=== PATIENT | female | born 1930 | race Caucasian/White ===

== ENCOUNTER → 2017-02-27 | Outpatient (CLI) | payer OTHER, MEDICARE ==
[~2017-02-27] MED LIST: ACETAMINOPHEN-1 EAC1 PO; ACTONEL; ACTONEL 35 MG35 M1 PO; ACTONEL30 MG; ACTONEL30 MG PO; ADULT LOW DOSE81 MG PO; ANUSOL-HC30 GM RC; APAP500; AUGMENTIN 875875 MG PO; B12 IM; CALTRATE-600 W1 EACH PO; CARVEDILOL12.5 MG PO; CIDATRINE500 MG PO; CLONAZEPAM; CLONAZEPAM 1 MG1 M1 PO; CLONAZEPAM PO; CLONIDINE; COLACE100 MG PO; COREG; DULCOLAX; FERRO-TIME325 MG PO; FERROUS OR; FUROSEMIDE 40 M40 M1 PO; GILPIZIDE; GLIPIZIDE 5 MG T5 MG PO; GLIPIZIDE ER2.5 MG PO; GLIPIZIDE5 MG PO; GLUCOSAMINE &1 EACH PO; HCTZ; IRON OR; IRON325; IRON325 PO; K-DUR 20 MEQ T20 MEQ PO; KLOR-CON 1010 MEQ PO; LASIX 20 MG TAB20 MG PO; LASIX 40 MG TAB40 M2 PO; LAXATIVE5 M1 PO; LIPITOR10 MG PO; LISINOPRIL; LISINOPRIL10 MG PO; LISINOPRIL20 MG PO; LOPERAMIDE 2 MG2 M1 PO; LORTAB 7.5/5001 TA3 PO; MAG DELAY64 MG PO; MAG-OX 400 TAB400 M1 PO; MUCINEX TA600 MG/TA1 PO; MUCINEX600 MG PO; NABUMETONE; NORCO 10-325 T1 EACH PO; NORCO 5-325 TA1 EACH PO; OMEPRAZOLE20 MG PO; ONDANSETRON HCL4 M2 PO; OS-CAL 500+D C1 EACH PO; PRAVACHOL; PRAVACHOL40 MG PO; PRAVASTATIN SOD20 MG PO; PRILOSEC 10MG C10 M1 PO; PRILOSEC 20 MG20 MG PO; PRILOSEC40 MG PO; PROAIR HFA8.5 GM INH; PROTONIX40 M1 PO; SERTRALINE HCL50 MG PO; SLO-NIACIN500 MG PO; TRAMADOL 50 MG50 MG PO; TRAZODONE HCL50 MG PO; TYLENOL325 MG PO; ULTRACET TABLE1 EACH PO; ULTRAM 50MG TAB50 MG PO; VENTOLIN HFA 1818 GM INH; VITAMIN B-12500 MCG PO; XOPENEX 0.63 MG/3 M1 INH; XOPENEX HF1 UDINHALE IH; ZOLOFT; ZOLOFT50 MG PO
[2017-02-27 13:02] LABS: CALCIUM 7.4 mg/dL (8.5-10.1); CREATININE 1.5 mg/dL (0.6-1.0); MAGNESIUM 1.2 mg/dL (1.8-2.4); POTASSIUM 4.2 mmol/L (3.5-5.1)
== END ==
LOC: ULTRA 09:23 → RAD 09:23
PROVIDERS: Internal Medicine Pulmonary Disease
DX: R05 Cough (principal); M79.605 Pain in left leg; M79.604 Pain in right leg; R60.0 Localized edema

== ENCOUNTER 2017-03-02 06:24 | Inpatient (IN) | payer OTHER, MEDICARE ==
[~2017-03-02] VITALS: Ht 152.4 cm; Wt 47.6 kg
--- NOTE | ~2017-03-02 | HC ---
[facility] [place] [address] CONSULTATION Name: LIVE MAN Room #: 464-P ADM IN M.R.#: [id number] Admission: 03/02/17 Attend Phys: Matthew Thorne MD Discharge: Date of : 31 Report #: [id number] THIS REPORT FOR: //name// CC: Marc Thorne MD DATE OF SERVICE: 03/02/2017 REFERRING PROVIDER: Matthew Thorne MD REASON FOR CONSULTATION: Hypoxemic respiratory failure. CHIEF COMPLAINT: Shortness of breath. HISTORY OF PRESENT ILLNESS: Our group was asked to see the patient in consultation while hospitalized at [facility], a pleasant elderly 86-year-old woman with a past pulmonary history significant for pulmonary edema associated with congestive heart failure, presented to the emergency department with increasing shortness of breath, was just seen in our office on the 27 of February because of some increasing lower extremity edema. Lower extremity venous Doppler was negative for any pulmonary embolism. There is some increase in diuretics for Lasix to 40 mg twice daily for 2 additional days as well as sodium avoidance. The patient continued to have increasing left greater than right lower extremity edema and increasing shortness of breath, was brought to the emergency room visit. She has been on diuretics since this morning in the emergency department and has noted some improvement; however, is on 4 liters nasal cannula at this time to maintain oxygen saturation. Denies any cough, congestion, wheezing at this time. Occasional nocturnal dyspnea noted. ALLERGIES: No known drug allergies. PAST MEDICAL HISTORY: 1. History of systolic congestive heart failure with an ejection fraction 30%-35% on echo, May of 2014. 2. History of gastroesophageal reflux disease. 3. Hypertension. 4. Diabetes mellitus type 2. 5. Carotid stenosis. OUTPATIENT MEDICATIONS: Include aspirin 81 mg daily, lisinopril 10 mg daily, glipizide 2.5 mg daily, carvedilol 12.5 mg twice daily, ondansetron p.r.n., Colace 100 mg daily, atorvastatin 10 mg daily, loperamide p.r.n., folic acid 1 mg daily, Lasix had been 40 mg twice daily, trazodone p.r.n., ibuprofen p.r.n., Mucinex p.r.n., ProAir p.r.n., Protonix [address] [address] CONSULTATION Name: LIVE MAN Room #: 464-P [facility]#: [id number] Admission: 03/02/17 Attend Phys: Matthew Thorne MD Discharge: Date of : 31 Report #: [id number] SOCIAL HISTORY: The patient is a never smoker, no alcohol consumption, currently resides in the assisted living and . FAMILY HISTORY: Noncontributory due to her advanced age. REVIEW OF SYSTEMS: Difficult to obtain due to hard of hearing as best I can tell other than HPI. CONSTITUTIONAL: No fevers, chills or sweats, change in weight or appetite. ENT: No upper respiratory congestion, rhinorrhea or dysphagia. CARDIOVASCULAR: Known history of ischemic cardiomyopathy. No chest pains or palpitations. GASTROINTESTINAL: No nausea, vomiting or abdominal pain. GENITOURINARY: No dysuria, no frequency. INTEGUMENT: Denies any rash. MUSCULOSKELETAL: No joint pains or swelling. Has noted some lower extremity edema as described. PHYSICAL EXAMINATION: VITAL SIGNS: Afebrile, pulse 90s, respiratory rate 20, blood pressure 136/73, oxygen saturation 97% on 4 liters. GENERAL: This is a pleasant elderly woman, hard of hearing, but no distress. HEENT: Clear oropharynx. Mallampati 1 airway. NECK: Supple, no lymphadenopathy. LUNGS: Diminished, but relatively clear. CARDIOVASCULAR: Heart was regular. No murmurs noted. ABDOMEN: Soft, nontender, no masses. EXTREMITIES: Revealed 1+ pedal, left greater than right lower extremity edema. LABORATORY DATA: White blood cell count 6000, hemoglobin 10, hematocrit 31, platelet count 121. Sodium 146, potassium 4.3, chloride 109, bicarbonate 26, BUN 45, creatinine 1.6, glucose 162. ProBNP 29,707. Chest x-ray in the emergency department this morning reveals increased pulmonary vascular markings suggestive of pulmonary edema. IMPRESSION: 1. Acute on chronic systolic congestive heart failure. 2. Acute hypoxemic respiratory failure secondary to the above. 3. Lower extremity edema. 4. Diabetes mellitus type 2. 5. . 6. Anemia. SUGGEST: 1. Continue ongoing diuresis. 2. Continuous oximetry. 3. DVT prophylaxis. [address] [address] CONSULTATION Name: DONOVANLIVE M Room #: 464-P ADM IN M.R.#: [id number] Admission: 03/02/17 Attend Phys: Matthew Thorne MD Discharge: Date of : 31 Report #: [id number] 4. Bronchodilators p.r.n. 5. Consider physical and occupational therapy to assist mobilization. 6. Follow up electrolytes and hemoglobin. 7. We will follow along with you. Thank you for requesting our suggestions. By: 1203 0029 Saad Bowling MD /nt
--- NOTE | ~2017-03-02 | 2DMMODE ---
[facility] [address] [place] [address] 2 D/M-MODE ECHOCARDIOGRAM Name: LIVE MAN Room #: 464-P ADM IN M.R.#: [id number] Admission: 03/02/17 Attend Phys: Bryant Hinojosa Discharge: Date of : 31 Date of Service: 03/04/17 1305 Report #: [id number] THIS REPORT FOR: //name// APPROVED REPORT Study performed: 03/04/2017 11:25:31 EXAM: Comprehensive 2D, Doppler, and color-flow Echocardiogram Patient Location: Echo lab Room #: 464 Blood Pressure: 120/60 mmHg HR: 81 bpm Rhythm: NSR Other Information Study Quality: Good Indications Congestive Heart Failure Dyspnea Hx: CABG, ISCM, DM, HTN 2D Dimensions LVEF(%): 34.63 (>50%) IVSd: 9.48 (7-11mm) LVOT Diam: 20.47 (18-24mm) LVDd: 54.76 mm PWd: 9.35 (7-11mm) Ascending Aorta: 30.76 mm LVDs: 45.60 (25-40mm) Aortic Root: 30.64 mm Rizo's LVEF: 34.63 % Volumes Left Atrial Volume (Systole) Single Plane 4CH: 60.21 mL Single Plane 2CH: 68.81 mL LA ESV Index: 48.00 mL/m2 Aortic Valve AoV Peak Carlos.: 2.00 m/s AO Peak Gr.: 16.00 mmHg LV Max P.56 mmHg AO Mean Gr.: 7.46 mmHg LV Max: 0.62 m/s AO V2 VTI: 360.88 mm [facility] [address] [address] 2 D/M-MODE ECHOCARDIOGRAM Name: LIVE MAN Room #: 464-P ADM IN ..#: [id number] Admission: 03/02/17 Attend Phys: Bryant Hinojosa Discharge: Date of : 31 Date of Service: 03/04/17 1305 Report #: [id number] Mitral Valve E/A Ratio: 3.1 MV Decel. Time: 157.01 ms MV E Max Carlos.: 1.08 m/s MV A Carlos.: 0.35 m/s MV PHT: 45.53 ms Pulmonary Valve PV Peak Carlos.: 0.66 m/s PV Peak Gr.: 1.73 mmHg Pulmonary Vein P Vein S: 22.4 m/s P Vein D: 95.7 m/s Tricuspid Valve TR Peak Carlos.: 3.66 m/s RAP Estimate: 10.00 mmHg TR Peak Gr.: 53.68 mmHg RVSP: 64.00 mmHg Left Ventricle The left ventricle is normal size. Global left ventricular dysfunction. There is normal left ventricular wall thickness. Left ventricular ejection fraction is moderate to severely decreased. LVEF is 30%. Grade III - reversible restrictive diastolic dysfunction. Right Ventricle The right ventricle is normal size. Right ventricle is normal Atria Left atrium is severely dilated. The right atrium size is normal. Aortic Valve Aortic valve is moderately thickened and calcified. Mild aortic regurgitation. Mild aortic stenosis. Mitral Valve Mitral valve leaflets are mildly sclerotic. Severe mitral regurgitation. Tricuspid Valve The tricuspid valve is normal in structure. There is moderate to severe tricuspid regurgitation. The right atrial pressure is estimated at 10 mmHg. There is moderate pulmonary hypertension with an estimated PAP of 64mmHg. [facility] [address] [place] [address] 2 D/M-MODE ECHOCARDIOGRAM Name: LIVE MAN Bryant Room #: 464-P ADM IN .R.#: [id number] Admission: 03/02/17 Attend Phys: Bryant Hinojosa Discharge: Date of : 31 Date of Service: 03/04/17 1305 Report #: [id number] Pulmonic Valve The pulmonary valve is normal in structure. Mild to moderate pulmonic regurgitation. Great Vessels The aortic root is normal in size. The ascending aorta is normal in size. IVC is normal in size and collapses <50% with inspiration. Pericardium There is no pericardial effusion. <Conclusion> Left ventricular ejection fraction is moderate to severely decreased. Global left ventricular dysfunction, left atrial enlargement. LVEF is 30%. Grade III - reversible restrictive diastolic dysfunction. Aortic valve is moderately thickened and calcified. Mild aortic regurgitation and very mild stenosis. Mitral valve leaflets are mildly sclerotic. Severe mitral regurgitation. Pulmonary artery pressure was approximately 64mmHg. There is no pericardial effusion. <ELECTRONICALLY SIGNED> By: Barry Roa MD, FACC 03/04/17 1305 1305 1305 Barry Roa MD, FACC /INF
--- NOTE | ~2017-03-02 | D ---
[facility] [place] [address] DISCHARGE SUMMARY Name: LIVE MAN Room #: 464-P [facility] IN M.R.#: [id number] Admission: 03/02/17 Attend Phys: Matthew Thorne MD Discharge: 03/07/17 Date of : 31 Report #: [id number] THIS REPORT FOR: //name// CC: Marin Thorne DATE OF SERVICE: 03/07/2017 DATE OF ADMISSION: 03/02/2017. DATE OF DISCHARGE: 03/07/2017. DISCHARGE DIAGNOSES: 1. Bchpk-er-domkdhu mixed congestive heart failure. 2. Coronary artery disease, status post coronary artery bypass grafting. 3. Hypertension. 4. Diabetes. 5. Dyslipidemia. 6. Acute hypoxic respiratory failure, improved. 7. Pulmonary hypertension. 8. Debility. 9. Moderate protein-calorie malnutrition. 10. Chronic anemia. CONSULTS: Cardiology, Dr. Fields. Pulmonary, Dr. Aceves. PROCEDURES: None, but she did have a 2D echo done that showed an ejection fraction of 30%, grade 3, reversible, restricted diastolic dysfunction, mild aortic regurg and mild aortic stenosis, severe mitral regurg, pulmonary artery pressure of 64 mmHg. HOSPITAL COURSE: The patient is an 86-year-old female with a history of cardiomyopathy, CHF with a known of EF in the 30s, hypertension, and diabetes, presented to the ER secondary to shortness of breath. Please see details of admission dictated by Dr. Matthew Thorne on 03/02/2017. The patient was thought to have CHF and respiratory failure secondary to the above, was admitted and started on appropriate diuresis, O2 support, pulmonary toiletry. Pulmonary and cardiology were consulted. For details of the hospital course, please see [facility] as I assumed her care in the last couple of days. Over the course of several days, she improved remarkably. She had an echocardiogram with results as above. She also had a venous Doppler that was negative for DVT. Since coming to the hospital, her symptoms have improved. Her chest x-ray also looks improved. She denies any complaints of ever been feeling weak. She was evaluated by therapy and is agreeable to going to skilled facility on discharge. Otherwise, she denies any other complaints. Nurses report no other problems. [address] [address] DISCHARGE SUMMARY Name: LIVE MAN Room #: 464-P [facility] IN M.R.#: [id number] Admission: 03/02/17 Attend Phys: Matthew Thorne MD Discharge: 03/07/17 Date of : 31 Report #: [id number] She is now on room air. Pulmonary is recommending O2 support nocturnally. She does have chronic kidney disease, and overall, that appears to be stable as well as chronic anemia and that appears to be stable as well. DISCHARGE DISPOSITION: To care home facility. DISCHARGE PHYSICAL EXAMINATION: VITAL SIGNS: Temp of 97, pulse 73, blood pressure 114/48, and O2 sats 96% on room air. GENERAL: She is awake, alert, answering questions appropriately, no acute respiratory distress. HEENT: Normocephalic, atraumatic. Pupils equal. NECK: Supple. CARDIOVASCULAR: Regular rate and rhythm. No murmurs. LUNGS: Clear to auscultation bilaterally. No crackles or wheezes. ABDOMEN: Soft, no distention, no tenderness. EXTREMITIES: Bilateral lower extremity swelling, left greater than right. NEUROLOGIC: Nonfocal. DISCHARGE MEDICATIONS: Demadex 20 mg daily, Tylenol p.r.n., albuterol p.r.n., aspirin 81 daily, Lipitor 10 daily, Coreg 12.5 b.i.d., vitamin B12 at 1000 mcg daily, Cozaar 100 daily, folic acid 1 mg daily, glipizide 2.5 daily, guaifenesin 600 b.i.d., Xopenex q.4 hours p.r.n., lisinopril 10 daily, Imodium p.r.n., Zofran p.r.n., Protonix 40 daily, tramadol p.r.n., 50 at bedtime. DIET: Diabetic, low-sodium, cardiac, fluid-restricted diet. ACTIVITY: As tolerated. FOLLOWUP: With primary care in 1 week. Follow up with pulmonary as instructed. Follow up with cardiology as instructed. To seek immediate medical attention if symptoms worsen or recur or if she has any other significant medical concerns. Discharge plan took 40 minutes. By: 1614 1820 Ani Braden MD /nt
--- NOTE | ~2017-03-02 | EKG ---
[place] [address] [address] [place] [address] ELECTROCARDIOGRAM REPORT Name: JILL MANLIVE M Room #: 464-P ADM IN M.R.#: [id number] Admission: 03/02/17 Attend Phys: Matthew Thorne MD Discharge: Date of : 31 Report #: [id number] THIS REPORT FOR: //name// [facility] [place] ED Test Date: 2017-03-02 Test Time: 06:30:51 Pat Name: LIVE MAN Department: Room: 464 Gender: F Die Technician: aiden taylor : 1930 Requested By: Deborah Welsh Order Number: [id number] MD: Barry Roa Measurements Intervals [place] Rate: 77 P: 13 IA: 156 QRS: -31 QRSD: 97 T: 160 QT: 406 QTc: 460 Interpretive Statements Sinus rhythm Abnormal R-wave progression, late transition LVH with secondary repolarization abnormality No previous ECG available for comparison Electronically Signed On 03-04-2017 8:24:43 CDT by Barry Roa [email or web address] <ELECTRONICALLY SIGNED> By: Barry Roa MD, [facility] 03/04/17 0824 9 9 Barry Roa MD, [facility] /EPI
--- NOTE | ~2017-03-02 | HC ---
[facility] [place] [address] CONSULTATION Name: LIVE MAN Room #: 464-P ADM IN M.R.#: [id number] Admission: 03/02/17 Attend Phys: Matthew Thorne MD Discharge: Date of : 31 Report #: [id number] THIS REPORT FOR: //name// CC: Marc Thorne DATE OF SERVICE: 03/02/2017 INDICATION: Dyspnea. HISTORY OF PRESENT ILLNESS: This is a pleasant 86-year-old female presenting with intermittent shortness of breath for the past several days. She has also noticed increased swelling of her lower extremities. The patient resides in a senior living, able to ambulate with the use of a walker. She has had prior admissions for heart failure. There is no history of fever, nausea or diarrhea. She denies any history of chest pains. PAST MEDICAL HISTORY: Remote history of CABG in 1991. Known to have ischemic cardiomyopathy with EF in the 30-35% range. History of diabetes mellitus, hypertension, hypercholesterolemia and renal insufficiency. ALLERGIES: None. CURRENT MEDICATIONS: Include aspirin 81 mg daily, Coreg 12.5 mg twice a day, albuterol inhaler, Lasix 40 mg twice a day, Xopenex, lisinopril 10 mg daily, atorvastatin 10 mg daily, Protonix 40 mg daily and glipizide. SOCIAL HISTORY: Negative for tobacco use. FAMILY HISTORY: Negative for premature CAD. REVIEW OF SYSTEMS: A full 10-point review of systems is performed. Only the pertinent positives and negatives are described in the HPI. PHYSICAL EXAMINATION: VITAL SIGNS: Blood pressure is 130/70, heart rate is 90 beats per minute. GENERAL APPEARANCE: An elderly appearing female in no acute respiratory distress. HEAD AND EYES: Normocephalic. Sclerae are anicteric. ENT: Oral mucosa moist. NECK: Supple. LUNGS: A few basilar crackles bilaterally. CARDIAC: S1, S2 positive, 1/6 systolic murmur. ABDOMEN: Soft, nontender. Bowel sounds positive. EXTREMITIES: No major joint deformities, bilateral edema. [facility] [address] [place] [address] CONSULTATION Name: LIVE MAN Room #: 464-P ADM IN M.R.#: [id number] Admission: 03/02/17 Attend Phys: Matthew Thorne MD Discharge: Date of : 31 Report #: [id number] ECG reveals sinus rhythm, LVH with repolarization abnormality. LABORATORY VALUES: White count is 5.5, hemoglobin is 10.2. Sodium is 144, creatinine is 1.5, troponin is negative. ASSESSMENT AND PLAN: 1. Acute on chronic mixed congestive heart failure, would continue with b.i.d. Lasix. Strict I's and O's should be maintained. May need a Goodwin, as per the patient's wishes. 2. Coronary artery disease/coronary artery bypass graft, stable with no anginal episodes. The initial troponin level was negative. Continue with medical management. 3. Hypertension, continue with medications. 4. Diabetes mellitus, continue with medications. 5. Hypercholesterolemia, continue with statin therapy. Thank you for allowing me to participate in the care of your patient. <ELECTRONICALLY SIGNED> By: Davis Fields MD 03/02/17 1722 1052 1254 Davis Fields MD /nt
[2017-03-02 06:26] VITALS: BP 132/85
[2017-03-02] MEDS ORDERED: FOLIC ACID1 MG PO (06:46)
[2017-03-02] MEDS ORDERED: VITAMIN B-12500 MCG PO (06:48)
[2017-03-02] MEDS ORDERED: IBUPROFEN 200200 M1 PO (06:50)
[2017-03-02 06:52] LABS: BASOPHILS 0.9 % (0.0-2.0); HEMOGLOBIN 10.2 gm/dL (12.0-15.0); LYMPHOCYTES 16.5 % (24.0-44.0); MCH 34.9 pg (26.0-34.0); MCHC 32.9 g/dL (28.0-37.0); MCV 106.1 fL (80.0-100.0); MONOCYTES 7.2 % (1.0-8.0); PLATELET COUNT 121 thou/uL (150-400); POLYS 72.4 % (36.0-66.0); RBC 2.92 mil/uL (4.20-5.00); RDW 14.6 % (10.5-14.5); WBC 5.5 thou/uL (4.0-11.0)
[2017-03-02 06:53] LABS: MANUAL DIFF NO
[2017-03-02 07:09] LABS: CALCIUM 7.2 mg/dL (8.5-10.1); CREATININE 1.6 mg/dL (0.6-1.0); POTASSIUM 4.3 mmol/L (3.5-5.1)
[2017-03-02 07:15] LABS: TROPONIN-I 0.05 ng/mL (<0.04-0.07)
[2017-03-02 08:32] VITALS: BP 128/79
[2017-03-02 08:35] VITALS: BP 136/73
[2017-03-02 12:45] VITALS: BP 100/57
[2017-03-02 15:30] VITALS: BP 107/48
[2017-03-02 19:26] VITALS: BP 95/55
[2017-03-03 03:11] VITALS: BP 112/58
[2017-03-03 05:30] LABS: BASOPHILS 0.6 % (0.0-2.0); EOSINOPHILS 3.1 % (0.0-3.0); HEMATOCRIT 27.5 % (37.0-47.0); HEMOGLOBIN 9.1 gm/dL (12.0-15.0); LYMPHOCYTES 12.7 % (24.0-44.0); MCH 35.2 pg (26.0-34.0); MCHC 33.1 g/dL (28.0-37.0); MCV 106.4 fL (80.0-100.0); MONOCYTES 7.6 % (1.0-8.0); PLATELET COUNT 92 thou/uL (150-400); RBC 2.58 mil/uL (4.20-5.00); RDW 14.5 % (10.5-14.5); WBC 5.3 thou/uL (4.0-11.0)
[2017-03-03 05:32] LABS: MANUAL DIFF NO
[2017-03-03 05:52] LABS: ALBUMIN 2.8 g/dL (3.4-5.0); CREATININE 1.5 mg/dL (0.6-1.0); POTASSIUM 4.5 mmol/L (3.5-5.1); TOTAL BILIRUBIN 0.6 mg/dL (<0.1-1.0)
[2017-03-03 07:50] VITALS: BP 101/50
[2017-03-03 11:37] VITALS: BP 97/48
[2017-03-03 16:18] VITALS: BP 106/59
[2017-03-03 19:36] VITALS: BP 109/43
[2017-03-04 02:53] VITALS: BP 126/62
[2017-03-04 05:42] LABS: CALCIUM 7.3 mg/dL (8.5-10.1); CREATININE 1.7 mg/dL (0.6-1.0); POTASSIUM 4.5 mmol/L (3.5-5.1)
[2017-03-04 07:29] VITALS: BP 120/60
[2017-03-04 11:31] VITALS: BP 107/52
[2017-03-04 16:17] VITALS: BP 123/62
[2017-03-04 19:40] VITALS: BP 123/54
[2017-03-05 04:04] VITALS: BP 139/62
[2017-03-05 07:55] VITALS: BP 123/62
[2017-03-05 11:18] VITALS: BP 107/44
[2017-03-05 16:00] VITALS: BP 120/63
[2017-03-05 20:05] VITALS: BP 104/40
[2017-03-06 05:00] VITALS: BP 124/56
[2017-03-06 06:27] LABS: ALBUMIN 3.1 g/dL (3.4-5.0); CALCIUM 8.1 mg/dL (8.5-10.1); CREATININE 1.4 mg/dL (0.6-1.0); TOTAL BILIRUBIN 0.8 mg/dL (<0.1-1.0); TOTAL PROTEIN 5.7 g/dL (6.4-8.2)
[2017-03-06 07:51] VITALS: BP 120/64
[2017-03-06 11:32] VITALS: BP 108/50
[2017-03-06 16:06] VITALS: BP 125/71
[2017-03-06 19:50] VITALS: BP 117/49
[2017-03-07 03:55] VITALS: BP 104/49
[2017-03-07 09:07] VITALS: BP 110/40
[2017-03-07] MEDS ORDERED: DEMADEX20 MG PO (10:55)
[2017-03-07 12:41] VITALS: BP 114/48
== END 2017-03-07 15:00 | DRG 291 ==
LOC: ER 06:24 → EROBS 07:54 → 4W 07:54 → EROBS 08:35 → 4W 08:55
PROVIDERS: Emergency Medicine; Family Medicine; Internal Medicine Cardiovascular Disease
DX: I13.0 Hypertensive heart and chronic kidney disease with heart failure and stage 1 through stage 4 chronic kidney disease, or unspecified chronic kidney disease (principal); J96.01 Acute respiratory failure with hypoxia; I50.43 Acute on chronic combined systolic (congestive) and diastolic (congestive) heart failure; E44.0 Moderate protein-calorie malnutrition; E87.0 Hyperosmolality and hypernatremia; N17.9 Acute kidney failure, unspecified; Z96.641 Presence of right artificial hip joint; Z96.651 Presence of right artificial knee joint; E78.00 Pure hypercholesterolemia, unspecified; I25.5 Ischemic cardiomyopathy; I25.10 Atherosclerotic heart disease of native coronary artery without angina pectoris; K21.9 Gastro-esophageal reflux disease without esophagitis; D64.9 Anemia, unspecified; E78.5 Hyperlipidemia, unspecified; I27.2 Other secondary pulmonary hypertension; R53.81 Other malaise; N18.3 Chronic kidney disease, stage 3 (moderate); E11.22 Type 2 diabetes mellitus with diabetic chronic kidney disease; Z68.20 Body mass index [BMI] 20.0-20.9, adult; Z95.1 Presence of aortocoronary bypass graft; Z90.49 Acquired absence of other specified parts of digestive tract; Z90.710 Acquired absence of both cervix and uterus
CPT/HCPCS: 10045

== ENCOUNTER 2017-04-17 13:13 | Inpatient (IN) | payer OTHER, MEDICARE ==
[~2017-04-17] VITALS: Ht 154.9 cm; Wt 57.5 kg
--- NOTE | ~2017-04-17 | EKG ---
[address] [place] [address] ELECTROCARDIOGRAM REPORT Name: LIVE MAN Room #: 218-P ADM IN M.R.#: [id number] Admission: 04/17/17 Attend Phys: Renato Little DO Discharge: Date of : 31 Report #: [id number] THIS REPORT FOR: //name// [facility] Test Date: 2017-04-17 Test Time: 14:35:55 Pat Name: LIVE MAN Department: Room: 218 P Gender: F Doll Maker: Bryant GARZA : 1930 Requested By: Marc Aceves Order Number: [id number] MD: Barry Roa Measurements Intervals [place] Rate: 88 P: 69 MD: 152 QRS: -27 QRSD: 104 T: 174 QT: 392 QTc: 475 Interpretive Statements Sinus rhythm Atrial premature complex LVH with secondary repolarization abnormality Poor R wave progression Compared to ECG 03/02/2017 11:28:46 Atrial premature complex(es) now present Electronically Signed On 04-18-2017 7:18:28 CDT by Barry Roa [email or web address] <ELECTRONICALLY SIGNED> By: Barry Roa MD, [facility] 04/18/17 0718 1435 1435 Barry Roa MD, [facility] /EPI
--- NOTE | ~2017-04-17 | HC ---
[facility] [place] [address] CONSULTATION Name: LIVE MAN Room #: 218-P ADM IN M.R.#: [id number] Admission: 04/17/17 Attend Phys: Renato Little DO Discharge: Date of : 31 Report #: [id number] THIS REPORT FOR: //name// CC: Marc Little DATE OF SERVICE: 04/18/2017 INDICATION: Dyspnea. HISTORY OF PRESENT ILLNESS: This is an 87-year-old female presenting with shortness of breath and fatigue. She was at the tunnel [employer] office for an office visit and noted to be dyspneic. She was referred to the ER for admission for heart failure. The patient has had multiple hospitalizations for congestive heart failure. EF is in the 30-35% range with moderately severe mitral regurgitation. The patient offers no complaints of chest pains, fevers, nausea, or cough. Presently, she feels comfortable and appears to be at her baseline. She did receive IV Lasix since yesterday. PAST MEDICAL HISTORY: Remote history of CABG in 1991. Multiple admissions for congestive heart failure. Recent echo reveals ejection fraction in the 30-35% range, moderately severe mitral regurgitation. Diabetes mellitus, hypertension, hypercholesterolemia, and renal insufficiency. Advanced age and general debility. ALLERGIES: None. MEDICATIONS AT HOME: Include torsemide 20 mg daily, Ultram, Coreg 12.5 mg twice a day, aspirin once a day, lisinopril 10 mg daily, Lipitor 10 mg at night, and Protonix 40 mg daily. SOCIAL HISTORY: Negative for tobacco use, resides in a detention. FAMILY HISTORY: Negative for premature CAD. REVIEW OF SYSTEMS: A full 10-point review of systems performed. Only the pertinent positives and negatives are described in the HPI. PHYSICAL EXAMINATION: VITAL SIGNS: Blood pressure is 108/60, heart rate is 90 beats per minute. GENERAL APPEARANCE: This is an elderly appearing female, in no acute respiratory distress. HEAD AND EYES: Normocephalic. Sclerae are anicteric. ENT: Oral mucosa moist. NECK: Supple. LUNGS: Diminished breath sounds at the right base, clear on the left side. [facility] [address] [place] [address] CONSULTATION Name: LIVE MAN Room #: 218-P [facility] IN M.R.#: [id number] Admission: 04/17/17 Attend Phys: Renato Little DO Discharge: Date of : 31 Report #: [id number] CARDIAC: Regular rate and rhythm, 1/6 systolic murmur. ABDOMEN: Soft, nontender. Bowel sounds positive. EXTREMITIES: No major joint deformities. Positive edema in both lower extremities. ECG reveals sinus rhythm, LVH with repolarization abnormality, left axis deviation. LABORATORY VALUES: White count is 5.5, hemoglobin is 9.0. Sodium is 141, creatinine is 2.0. Troponin is negative. ProBNP is elevated. ASSESSMENT: 1. Congestive heart failure, acute on chronic mixed type. Continue with diuretic therapy at this time. Her respiratory status has improved with IV diuresis since yesterday. Consider switching back to oral torsemide. 2. History of coronary artery bypass graft/coronary artery disease, clinically stable with no anginal episodes. The troponin level is negative. Continue with medical therapy. 3. Hypertension. The blood pressure remained stable on the recurrent regimen. 4. Hypercholesterolemia, continue with statin therapy. 5. Chronic renal insufficiency, follow serial creatinine levels. 6. Chronic obstructive pulmonary disease, as per pulmonary. Thank you for allowing me to participate in the care of your patient. <ELECTRONICALLY SIGNED> By: Davis Fields MD 04/19/17 0921 0839 1115 Davis Fields MD /nt
--- NOTE | ~2017-04-17 | EKG ---
[address] [address] ELECTROCARDIOGRAM REPORT Name: LIVE MAN Room #: 218-P ADM IN M.R.#: [id number] Admission: 04/17/17 Attend Phys: Renato Little DO Discharge: Date of : 31 Report #: [id number] THIS REPORT FOR: //name// [facility] Test Date: 2017-04-18 Test Time: 07:30:21 Pat Name: LIVE MAN Department: Room: 218 P Gender: F Anesthesiology Technologist: wilmar : 1930 Requested By: Marc Aceves Order Number: [id number] MD: Nathaniel Salgado Measurements Intervals [place] Rate: 97 P: 79 VA: 153 QRS: -33 QRSD: 106 T: 159 QT: 382 QTc: 486 Interpretive Statements Sinus rhythm Atrial premature complex Abnormal R-wave progression, late transition LVH with secondary repolarization abnormality Electronically Signed On 04-18-2017 20:46:42 CDT by Nathaniel Salgado [email or web address] <ELECTRONICALLY SIGNED> By: Nathaniel Salgado MD 04/18/176 9 9 Nathaniel Salgado MD /EVELYN
--- NOTE | ~2017-04-17 | HC ---
[facility] [place] [address] CONSULTATION Name: LIVE MAN Room #: 218-P [facility] IN M.R.#: [id number] Admission: 04/21/17 Attend Phys: Renato Little DO Discharge: 04/21/17 Date of : 31 Report #: [id number] THIS REPORT FOR: //name// CC: Marc Little DATE OF CONSULT: 04/18/2017. HISTORY OF PRESENT ILLNESS: The patient is an 87-year-old white female admitted with increased shortness of breath, fatigue. She was noted to have chronic obstructive pulmonary disease with an exacerbation. She has some anemia and has been seen by Hematology. She also has some thrombocytopenia. Pulmonary medicine has been consulted regarding her chronic obstructive pulmonary disease. She has had some issues with frequent urination and has had a Goodwin catheter placed. We are seeing her in rehabilitation medicine consultation. PAST MEDICAL HISTORY: Includes CHF, anemia, cardiomyopathy, coronary artery disease with prior bypass surgery, diabetes with history of some neuropathy. She has had a left hip hemiarthroplasty, right hip replacement, right knee replacement. MEDICATIONS: Please see the full medication listing. SOCIAL HISTORY: Lives in an assisted living facility at [facility]. Premorbidly utilized a walker short distances and the wheelchair longer distances. She was on 2 liters nasal prong O2. She has some assistance with dressing. REVIEW OF SYSTEMS: Did not offer any current complaints of chest pain, shortness of breath or abdominal discomfort. PHYSICAL EXAMINATION: GENERAL: She is a pleasant, small statured, thin 87-year-old white female in no obvious distress. VITAL SIGNS: Last recorded temperature is 97.8, pulse 77, respirations 20, blood pressure 105/66. The patient is alert, pleasant. HEENT: Appeared to be benign. NEUROLOGIC: Cranial nerves grossly intact. Facies are symmetric. Nasal prong O2 is in place. She has functional range of motion of both upper extremities with strength grade 4- to 3+/5. DTRs are trace to 1. In the lower extremities, there is no focal calf swelling, functional range of motion with strength grade 3+ to 4-/5. DTRs are trace to 1. She has the indwelling Goodwin catheter. ASSESSMENT: An 87-year-old white female with the following problem list: 1. Medical complexity with generalized debilitation. 2. Chronic obstructive pulmonary disease with apparent exacerbation. Pulmonary medicine is consulted. [address] [address] CONSULTATION Name: MANLIVE Room #: 218-P [facility] IN .R.#: [id number] Admission: 04/21/17 Attend Phys: Renato Little DO Discharge: 04/21/17 Date of : 31 Report #: [id number] 3. Congestive heart failure. 4. Noninsulin dependent diabetes mellitus. 5. Neuropathy. 6. Frequency/difficulty sleeping secondary to the frequent voiding. She has had a Goodwin catheter placed. 7. Anemia. 8. Thrombocytopenia. PLAN: Therapies are to see the patient. We will be glad to follow along regarding her rehab therapy needs. <ELECTRONICALLY SIGNED> By: Krishna Robertson MD 04/30/17 1515 1011 1110 Krishna Robertson MD /nt
--- NOTE | ~2017-04-17 | 2DMMODE ---
[facility] [place] [address] 2 D/M-MODE ECHOCARDIOGRAM Name: DONOVANLIVE M Room #: 218-P ADM IN M.R.#: [id number] Admission: 04/17/17 Attend Phys: Bryant Murillo Discharge: Date of : 31 Date of Service: 04/17/17 1626 Report #: [id number] THIS REPORT FOR: //name// APPROVED REPORT Study performed: 04/17/2017 15:31:16 EXAM: Comprehensive 2D, Doppler, and color-flow Echocardiogram Patient Location: In-Patient Room #: 218 Status: routine Other Information Study Quality: Good Indications Pulmonary Hypertension Cardiomyopathy 2D Dimensions IVC: 16.00 mm Tricuspid Valve TR Peak Carlos.: 3.97 m/s RAP Estimate: 10.00 mmHg TR Peak Gr.: 62.97 mmHg PA Pressure: 73.00 mmHg Left Ventricle The left ventricle is normal size. There is normal left ventricular wall thickness. Left ventricular systolic function is moderate to severely decreased. LVEF is 30%. This study is not technically sufficient to allow evaluation of the LV diastolic function on this limited study. Right Ventricle Right ventricle is at the upper limits of normal. The right ventricular systolic function is normal. Atria Left atrium is dilated. Right atrium is at the upper limits of normal. Aortic Valve The aortic valve is normal in structure. Aortic valve is calcified. decreased leaflet excursion noted no velocity across valve cannot [facility] [address] [place] [address] 2 D/M-MODE ECHOCARDIOGRAM Name: LIVE MAN Room #: 218-P ADM IN M.R.#: [id number] Admission: 04/17/17 Attend Phys: Bryant Murillo Discharge: Date of : 31 Date of Service: 04/17/17 1626 Report #: [id number] determine extent of stenosis Mitral Valve The mitral valve is normal in structure. Moderate to severe mitral regurgitation Tricuspid Valve The tricuspid valve is normal in structure. There is moderate to severe tricuspid regurgitation. The right atrial pressure is estimated at 10 mmHg. There is severe pulmonary hypertension. The estimated PAP was 73 mmHg. Pulmonic Valve The pulmonary valve is normal in structure. Great Vessels The aortic root is normal in size. IVC is normal in size and collapses >50% with inspiration. Pericardium There is no pericardial effusion. <Conclusion> The left ventricle is normal size. Left ventricular systolic function is moderate to severely decreased. LVEF is 30%. Left atrium is dilated. The aortic valve is normal in structure. Aortic valve is calcified. decreased leaflet excursion noted no velocity across valve cannot determine extent of stenosis The mitral valve is normal in structure. Moderate to severe mitral regurgitation The tricuspid valve is normal in structure. There is moderate to severe tricuspid regurgitation. The right atrial pressure is estimated at 10 mmHg. There is severe pulmonary hypertension. The estimated PAP was 73 mmHg. <ELECTRONICALLY SIGNED> By: Amish Medeiros MD 04/17/17 1626 25 25 Amish Medeiros MD /INF
--- NOTE | ~2017-04-17 | S ---
[facility] [place] [address] SURGICAL PATH RPT PROCEDURE Name: MINDA MAN Room #: 218-P ADM IN M.R.#: [id number] Admission: 04/17/17 Date of : 31 Discharge: Report #: [id number] Path Case #: [id number] PATHOLOGY REPORT COLLECTION DATE: 04/19/2017 RECEIVED DATE: 04/19/2017 SUBMITTING PHYS: Dr. Marc Aceves OTHER PHYS: SPECIMEN(S) RECEIVED: A.Peripheral smear * * * * * * * * * * * * FINAL DIAGNOSIS: Peripheral blood: - Peripheral blood with severe macrocytic normochromic anemia, mild thrombocytopenia, relative neutrophilia and lymphocytopenia. - Please see comment. (ABRAM:raysa; d/t: 04/19/17) COMMENT: The peripheral blood shows severe macrocytic anemia with thrombocytopenia. The red blood cells show mild anisopoikilocytosis including occasional microcytic and macrocytic forms and elliptocytes as well as rare tear drop cells. There are no schistocytes or morphologic evidence of hemolytic a hemolytic process identified. Overt myelodysplastic changes are not seen. The possible cause of macrocytic anemia is not morphologically evident in this case. Possible causes may include vitamin B12 and folate deficiency, reticulocytosis, chemotherapeutic agents, antiretroviral agents, liver disease, alcohol, myelodysplastic syndrome, other medications, possible splenectomy and hypothyroidism. Correlation with clinical findings is recommended. PATHOLOGIST: Sandy Bunn M.D. REPORT ELECTRONICALLY SIGNED BY: Sandy Bunn M.D. DATE/TIME: 04/19/2017 19:55 * * * * * * * * * * * * MICROSCOPIC DESCRIPTION: CBC Data (04/17/2017): WBC 5.2, RBC 2.52, hemoglobin 8.7, hematocrit 26.2, MCV 103.7, RDW 15.1%, platelet count 142,000. White blood cell count differential: 81% segs, 9% lymphs, 5% monos, 2% eos, 1% basophils. Peripheral Blood: Red blood cells are unremarkable and include mild anisopoikilocytosis including microcytic and macrocytic forms as well as elliptocytes and [facility] [address] [place] [address] SURGICAL PATH RPT PROCEDURE Name: MINDA MAN Room #: 218-P ADM IN ..#: [id number] Admission: 04/17/17 Date of : 31 Discharge: Report #: [id number] Path Case #: [id number] rare tear drop cells. There are no schistocytes or morphologic evidence of a hemolytic process identified. Platelets are mildly decreased with normal morphology. White blood cells are normal in number with predominance of mature segmented neutrophils. There are no circulating blasts or myeloid left shift identified. The lymphocytes are mostly small and mature. GROSS PATHOLOGY: Received are two Greene stained smears, labeled, Minda Man. CLINICAL HISTORY: The patient is an 87 year old female whose peripheral smear is submitted for review at the request of Dr. Benjamin Aceves. INITIAL CPT CODE(S): 77503 Professional services performed by [facility] at [facility], [address] [place] [address]. Technical services performed by [facility] at [address] [place] [address], [address], [place] [address]. [facility] [address] [place] [address] PHONE: [phone] DIRECTOR: Sterling Amezcua M.D. * * * END OF REPORT * * *
[~2017-04-17 13:13] MED LIST changes: +DEMADEX20 MG PO; +FOLIC ACID1 MG PO; +IBUPROFEN 200200 M1 PO
[2017-04-17 14:48] VITALS: BP 111/52
[2017-04-17 14:55] LABS: ABSOLUTE NEUTROPHILS 4.3 thou/uL (1.4-8.2); EOSINOPHILS 3.1 % (0.0-3.0); HEMATOCRIT 27.3 % (37.0-47.0); LYMPHOCYTES 10.8 % (24.0-44.0); MCH 34.7 pg (26.0-34.0); MCV 105.1 fL (80.0-100.0); PLATELET COUNT 142 thou/uL (150-400); POLYS 78.1 % (36.0-66.0); RDW 15.1 % (10.5-14.5); WBC 5.5 thou/uL (4.0-11.0)
[2017-04-17 14:57] LABS: MANUAL DIFF NO
[2017-04-17 15:04] LABS: ANION GAP 11 mmol/L (7-16); BUN 61 mg/dL (7-18); CALCIUM 7.3 mg/dL (8.5-10.1); CHLORIDE 104 mmol/L (98-107); CO2 26 mmol/L (21-32); GLUCOSE 136 mg/dL (74-106); POTASSIUM 5.2 mmol/L (3.5-5.1); SODIUM 141 mmol/L (136-145)
[2017-04-17 15:10] LABS: INR 1.2; PROTIME 12.6 Seconds (9.3-11.4)
[2017-04-17 15:11] LABS: ALBUMIN 3.2 g/dL (3.4-5.0); ALKALINE PHOSPHATASE 87 U/L (46-116); SGOT 58 U/L (15-37); SGPT 59 U/L (30-65); TOTAL BILIRUBIN 0.6 mg/dL (<0.1-1.0); TOTAL PROTEIN 6.3 g/dL (6.4-8.2); TROPONIN-I < 0.04 ng/mL (<0.04-0.07)
[2017-04-17 15:21] LABS: MAGNESIUM 1.1 mg/dL (1.8-2.4)
[2017-04-17 18:48] LABS: % SATURATION 45 % (20-39); IRON 94 ug/dL (50-170); TIBC 211 ug/dL (250-450); UIBC 117 ug/dL
[2017-04-17 20:25] LABS: FERRITIN < 1.0 ng/mL (8-252)
[2017-04-17 21:14] LABS: FOLIC ACID 36.8 ng/mL (8.6-58.9)
[2017-04-17 21:32] VITALS: BP 105/66
[2017-04-17 22:12] LABS: CALCIUM 7.2 mg/dL (8.5-10.1); CREATININE 1.9 mg/dL (0.6-1.0); MAGNESIUM 1.1 mg/dL (1.8-2.4); POTASSIUM 4.8 mmol/L (3.5-5.1)
[2017-04-18 04:52] VITALS: BP 115/35
[2017-04-18 06:18] LABS: ANION GAP 9 mmol/L (7-16); BUN 57 mg/dL (7-18); CALCIUM 7.1 mg/dL (8.5-10.1); CHLORIDE 104 mmol/L (98-107); CO2 28 mmol/L (21-32); CREATININE 1.8 mg/dL (0.6-1.0); GLUCOSE 146 mg/dL (74-106); MAGNESIUM 1.1 mg/dL (1.8-2.4); POTASSIUM 4.8 mmol/L (3.5-5.1); SODIUM 141 mmol/L (136-145); TROPONIN-I < 0.04 ng/mL (<0.04-0.07)
[2017-04-18 09:34] VITALS: BP 11/70
[2017-04-18 10:11] LABS: OBSERVED RETIC COUNT 3.04 % (0.6-2.6)
[2017-04-18 13:13] VITALS: BP 118/52
[2017-04-18 18:13] VITALS: BP 122/59
[2017-04-18 19:06] LABS: URINE BILIRUBIN NEGATIVE (Negative); URINE BLOOD 3+ (Negative); URINE COLOR RED; URINE GLUCOSE-RANDOM* NEGATIVE (Negative); URINE KETONES NEGATIVE (Negative); URINE LEUKOCYTES-REFLEX 2+ (Negative); URINE PROTEIN (DIPSTICK) 1+ (Negative); URINE UROBILINOGEN 0.2 E.U./dl (0.2-1.0)
[2017-04-18 19:20] LABS: SQUAMOUS 0-3 Few /LPF (0-3); URINE WBC-REFLEX 6-15 Few /HPF (0-5)
[2017-04-18 19:21] LABS: CASTS None Seen /LPF (None Seen); CRYSTALS None Seen /LPF (None Seen); URINE RBC >20 Many /HPF (0-2)
[2017-04-18 20:29] VITALS: BP 113/60
[2017-04-19 00:15] VITALS: BP 161/68
[2017-04-19 03:18] LABS: GLYCOHEMOGLOBIN (HGB A1C) 5.2 % (4.8-5.6)
[2017-04-19 03:47] VITALS: BP 101/53
[2017-04-19 04:11] LABS: ABSOLUTE NEUTROPHILS 4.2 thou/uL (1.4-8.2); BASOPHILS 0.5 % (0.0-2.0); EOSINOPHILS 4.6 % (0.0-3.0); HEMATOCRIT 24.5 % (37.0-47.0); HEMOGLOBIN 8.3 gm/dL (12.0-15.0); LYMPHOCYTES 9.5 % (24.0-44.0); MCH 34.5 pg (26.0-34.0); MCHC 33.7 g/dL (28.0-37.0); MCV 102.2 fL (80.0-100.0); MONOCYTES 5.8 % (1.0-8.0); PLATELET COUNT 115 thou/uL (150-400); POLYS 79.6 % (36.0-66.0); RDW 14.7 % (10.5-14.5); WBC 5.3 thou/uL (4.0-11.0)
[2017-04-19 04:13] LABS: CALCIUM 7.4 mg/dL (8.5-10.1); CREATININE 1.7 mg/dL (0.6-1.0); POTASSIUM 4.2 mmol/L (3.5-5.1)
[2017-04-19 04:43] LABS: MANUAL DIFF NO
[2017-04-19 07:38] VITALS: BP 116/67
[2017-04-19 11:59] VITALS: BP 104/56
[2017-04-19 17:11] VITALS: BP 130/73
[2017-04-19 19:32] VITALS: BP 103/52
[2017-04-20 03:51] LABS: HEMATOCRIT 24.6 % (37.0-47.0); HEMOGLOBIN 8.2 gm/dL (12.0-15.0); MCH 34.3 pg (26.0-34.0); MCHC 33.3 g/dL (28.0-37.0); RBC 2.39 mil/uL (4.20-5.00); RDW 14.9 % (10.5-14.5); WBC 4.4 thou/uL (4.0-11.0)
[2017-04-20 04:33] VITALS: BP 108/58
[2017-04-20 11:29] VITALS: BP 104/53
[2017-04-20 20:00] VITALS: BP 103/56
[2017-04-21 04:05] VITALS: BP 102/53
[2017-04-21 06:49] LABS: HEMATOCRIT 26.1 % (37.0-47.0); HEMOGLOBIN 8.6 gm/dL (12.0-15.0); MCH 34.6 pg (26.0-34.0); MCHC 32.8 g/dL (28.0-37.0); MCV 105.5 fL (80.0-100.0); PLATELET COUNT 113 thou/uL (150-400); RBC 2.48 mil/uL (4.20-5.00); RDW 15.3 % (10.5-14.5); WBC 6.3 thou/uL (4.0-11.0)
[2017-04-21 06:52] LABS: CALCIUM 8.3 mg/dL (8.5-10.1); CREATININE 1.7 mg/dL (0.6-1.0); POTASSIUM 4.4 mmol/L (3.5-5.1)
[2017-04-21 07:37] LABS: MANUAL DIFF YES
[2017-04-21 07:44] VITALS: BP 115/47
[2017-04-21 10:36] LABS: ABSOLUTE NEUTROPHILS 5.4 thou/uL (1.4-8.2); TOTAL CELL COUNT 100
[2017-04-21 10:37] LABS: ANISOCYTOSIS SLIGHT; OVALOCYTES FEW
[2017-04-21 12:13] VITALS: BP 112/48
[2017-04-21 17:00] VITALS: BP 125/84
[2017-04-23 12:11] LABS: A/G RATIO 1.2 (0.7-1.7); ALBUMIN 3.1 g/dL (2.9-4.4); ALPHA 1 0.2 g/dL (0.0-0.4); ALPHA 2 0.8 g/dL (0.4-1.0); BETA 0.7 g/dL (0.7-1.3); GAMMA 0.8 g/dL (0.4-1.8); M-SPIKE Not Observed g/dL (Not Observed)
== END 2017-04-21 19:44 | DRG 291 ==
LOC: 2N 13:13
PROVIDERS: Family Medicine; Internal Medicine Endocrinology, Diabetes & Metabolism; Internal Medicine Hematology & Oncology; Internal Medicine Pulmonary Disease
DX: I13.0 Hypertensive heart and chronic kidney disease with heart failure and stage 1 through stage 4 chronic kidney disease, or unspecified chronic kidney disease (principal); I50.43 Acute on chronic combined systolic (congestive) and diastolic (congestive) heart failure; N17.9 Acute kidney failure, unspecified; J44.1 Chronic obstructive pulmonary disease with (acute) exacerbation; Z96.651 Presence of right artificial knee joint; E11.40 Type 2 diabetes mellitus with diabetic neuropathy, unspecified; D64.9 Anemia, unspecified; Z96.641 Presence of right artificial hip joint; Z99.81 Dependence on supplemental oxygen; Z79.82 Long term (current) use of aspirin; Z79.899 Other long term (current) drug therapy; Z90.49 Acquired absence of other specified parts of digestive tract; Z95.1 Presence of aortocoronary bypass graft; Z90.710 Acquired absence of both cervix and uterus; N18.9 Chronic kidney disease, unspecified
CPT/HCPCS: 10081

== ENCOUNTER 2017-04-21 19:50 | Inpatient (IN) | payer OTHER, MEDICARE ==
[~2017-04-21] VITALS: Ht 154.9 cm; Wt 50.8 kg
--- NOTE | ~2017-04-21 | HC ---
[facility] [place] [address] CONSULTATION Name: LIVE MAN Room #: 505-P ADM IN M.R.#: [id number] Admission: 04/21/17 Attend Phys: Krishna Robertson MD Discharge: Date of : 31 Report #: [id number] THIS REPORT FOR: //name// CC: Marin Robertson CHIEF COMPLAINT, REASON FOR CONSULTATION: Left ankle pain. The patient's admission date is 04/21/2017. DATE OF CONSULTATION: 04/26/2017. HISTORY OF PRESENT ILLNESS: The patient is an 87-year-old female with sporadic intermittent left ankle pain. She reports it has not significantly worsened, but again is sporadic and sometimes is painful to put weight on. She denies a history of gout. She has had no specific treatment for this problem. PAST MEDICAL HISTORY: Obtained partially from the chart and partially from the patient and includes chronic obstructive pulmonary disease, congestive heart failure, anemia, coronary artery disease, diabetes, neuropathy. PAST SURGICAL HISTORY: Left hip hemiarthroplasty, right hip replacement and right total knee arthroplasty. SOCIAL HISTORY: Lives in the assisted living facility at [facility]. Her approximately 2-1/2 years ago and she is in a 1 bedroom apartment. She denies drinking alcohol or smoking cigarettes. She is on oxygen. REVIEW OF SYSTEMS: MUSCULOSKELETAL: See history of present illness. NEUROLOGIC: Denies numbness or tingling. MEDICATIONS: The patient's MAR was reviewed, which shows magnesium oxide, levalbuterol, torsemide, sennosides, lisinopril, folic acid, cyanocobalamin, aspirin, carvedilol, pantoprazole, , atorvastatin, trazodone, tramadol, ondansetron, loperamide and acetaminophen. ALLERGIES: No known drug allergies. LABORATORY DATA: Done on 04/26/2017 show a white blood cell count 4.4, hemoglobin 10.8, hematocrit 32.1, platelet count 110. Her BMP is grossly normal. Of note is an elevated serum uric acid, which was 12.9, calcium is 8, magnesium is 1.5 and this is low, creatinine is 1.5. PHYSICAL EXAMINATION: GENERAL: She is alert and oriented, interacts appropriately. She is [place] [id number] CONSULTATION Name: LIVE MAN Room #: 505-P [facility] IN .R.#: [id number] Admission: 04/21/17 Attend Phys: Krishna Robertson MD Discharge: Date of : 31 Report #: [id number] well-developed, well-nourished female who converses well, has a normal affect. She is in no acute distress. VITAL SIGNS: Most recent vital signs show temperature of 36.3, heart rate is 73, respiration rate is 18, blood pressure 120/63, pulse oximetry is 99% on 2 liters nasal cannula. EXTREMITIES: Examination of bilateral lower extremities. The right lower extremity is in a SERGEI hose. However, I am still able to appreciate pitting edema dorsally at her foot and there is no tenderness to palpation of the right lower extremity, she wiggles her toes. Left lower extremity exam, she has a dorsal edema to her foot that is slightly more than her right. She has diffuse ankle swelling that is mild to moderate. There is no erythema. There is no warmth. She is distally neurovascularly intact with brisk capillary refill. Sensation is intact to light touch. I am unable to palpate a dorsalis pedis or posterior tibial pulse. She does not have any significant pain with ankle range of motion, but does have pain with end-range of motion of the ankle joint. There is no tenderness in the foot. She has diffuse ankle joint line tenderness and no other tenderness in her left lower extremity, no knee joint line tenderness. The skin is clean, dry and intact. RADIOGRAPHS: AP and lateral of the left ankle show mild to moderate, does show moderate tibiotalar and subtalar arthrosis. IMPRESSION AND PLAN: Left ankle joint pain. This may be related to her elevated serum uric acid level, may be related to gout, may be related to osteoarthritis. At this point, I feel infection is very unlikely. At this point, we discussed conservative treatment options. I feel if she can tolerate SERGEI hoes on that leg that would be appropriate in order to help decrease her diffuse foot edema. She may try heat, Voltaren gel and an intraarticular injection to the tibiotalar joint under fluoroscopic guidance. This would be a steroid injection done by Radiology. Questions were encouraged and answered to the best of my ability. She feels she would like to start with conservative treatment, I think this is appropriate. One of my [facility] surgery partners followup, check on her this weekend. By: 0815 1001 Janie Montoya MD /nt
--- NOTE | ~2017-04-21 | H ---
[facility] [place] [address] HISTORY AND PHYSICAL Name: LIVE MAN Room #: 505-P ADM IN M.R.#: [id number] Admission: 04/21/17 Attend Phys: Krishna Robertson MD Discharge: Date of : 31 Report #: [id number] THIS REPORT FOR: //name// CC: Marc Robertson DATE OF SERVICE: 04/22/2017 HISTORY OF PRESENT ILLNESS: The patient is an 87-year-old white female who originally admitted to [facility] with increased shortness of breath, fatigue. She was noted to have COPD with an exacerbation. She also has anemia, was seen by Hematology, noted to have thrombocytopenia. She is to have 2 units of packed red blood cells today as her hemoglobin is down to 7.5. There is consideration for a bone marrow biopsy after she leaves rehabilitation. Hematology is to continue following on rehabilitation. She has been admitted for acute in-hospital inpatient rehabilitation to try to further improve her functional mobility and endurance and independence with mobility and ADLs so that she can return back to the home setting. PAST MEDICAL HISTORY: Includes congestive heart failure, anemia, cardiomyopathy, coronary artery disease with prior bypass surgery, diabetes mellitus with history of some neuropathy. She has had a left hip hemiarthroplasty, right hip replacement, right knee replacement. MEDICATIONS: Please see the full medication listing. SOCIAL HISTORY: Lives in an assisted living facility at [facility]. She premorbidly utilized a walker short distances and a wheelchair longer distances. She was on 2 liters nasal prong O2. She did have some assistance with dressing. REVIEW OF SYSTEMS: No current complaints of chest pain, shortness of breath, abdominal discomfort. Complains of overall generalized weakness and decreased strength and endurance. No focal extremity pain complaints were verbalized. Did not offer any complaints of headache, visual problems or bowel or bladder changes. PHYSICAL EXAMINATION: GENERAL: She is a pleasant, small statured, thin 87-year-old white female in no obvious distress. VITAL SIGNS: Last recorded temperature is 97.4, pulse 67, respirations 20, blood pressure 92/48. The patient is alert. She is pleasant. HEENT: Appeared to be benign. Cranial nerves are grossly intact. She is currently on 2 liters nasal cannula. Facies are symmetric. CHEST: Decreased breath sounds. CARDIAC: Sounded regular rate and rhythm. [facility] [address] [place] [address] HISTORY AND PHYSICAL Name: LIVE MAN Room #: 505-P [facility] IN M.R.#: [id number] Admission: 04/21/17 Attend Phys: Krishna Robertson MD Discharge: Date of : 31 Report #: [id number] ABDOMEN: Bowel sounds positive, nontender. GENITOURINARY AND RECTAL: Deferred. EXTREMITIES: She has functional range of motion of both upper extremities with strength grade 3+ to 4-/5. DTRs are trace to 1. Lower extremities functional range of motion with strength grade 3+ to 4-/5. DTRs are trace to 1. Functionally, she has been transferring with contact assistance. ASSESSMENT: An 87-year-old white female with the following problem list: 1. Medical complexity with generalized debilitation. 2. Chronic obstructive pulmonary disease with apparent exacerbation. 3. Anemia. Hemoglobin 7.5 to get transfused today. Hematology is involved. 4. Thrombocytopenia, considering bone marrow biopsy after rehabilitation. 5. Congestive heart failure. 6. Zul-yboulgb-tpatcblng diabetes mellitus. 7. Neuropathy. PLAN: The patient is admitted for acute in-hospital inpatient rehabilitation. From a postadmission physician evaluation perspective, there are no relevant changes since the preadmission screening. Please see the above review of prior and current functional status. As far as risk of complications, she has the multiple medical comorbidities as noted above. We will have the multiple security system sales consultant physicians continue to follow. Prognosis is reasonably good with estimated length of stay probably 1-2 weeks. Potential barriers would include her multiple medical comorbidities and decreased functional status. The patient meets diagnostic criteria for an acute in-hospital inpatient rehabilitation stay. She meets medical necessity criteria. She does have appropriate tolerance for therapies and has appropriate discharge goals back to the home setting. <ELECTRONICALLY SIGNED> By: Krishna Robertson MD 04/30/17 1515 0944 1101 Krishna Robertson MD /nt
--- NOTE | ~2017-04-21 | PLAN ---
[facility] [place] [address] REHAB UNIT PLAN OF CARE Name: LIVE MAN Room #: 505-P ADM IN M.R.#: [id number] Admission: 04/21/17 Attend Phys: Krishna Robertson MD Discharge: Date of : 31 Report #: [id number] THIS REPORT FOR: //name// CC: Marc Robertson The patient was seen back today in followup. She is in no distress. She is wanting to have her Goodwin catheter removed. She notes that she did use pads before, but otherwise did not have problems voiding. Her last recorded temperature is 97.7, pulse 74, respirations 18, blood pressure 109/52. No focal calf swelling. Strength of her upper and lower extremities is a grade 4-/5. She is on nasal prong O2. Transfers are contact guard. She is ambulating 20 feet contact guard with a front-wheeled walker. In occupational therapy, lower body dressing is dependent. She is on a soft diet with nectar thickened liquids. ASSESSMENT: 1. Medical complexity with generalized debilitation. 2. Chronic obstructive pulmonary disease with apparent exacerbation. 3. Anemia with hemoglobin 7.5. Got transfused yesterday. Hematology is involved. 4. Thrombocytopenia. Considering bone marrow biopsy after rehabilitation. 5. Congestive heart failure. 6. Noninsulin dependent diabetes mellitus. 7. Neuropathy. PLAN: We will go ahead and have the Goodwin catheter removed for a voiding trial as request by the patient. The overall plan of care is based on the preadmission screen, post-admission physician evaluation and information garnered from therapy assessments. 1. Estimated length of stay is probably at least 1-2 weeks pending progress. 2. Medical prognosis is reasonably good. 3. Anticipated interventions includes the interdisciplinary acute inpatient rehabilitation program with PT, OT, speech therapy, rehab nursing assisting regarding medication management, skin care prophylaxis, bowel and bladder issues and nursing education. Case management is involved as well as the weight loss consultant physicians. 4. Anticipated functional outcomes would be for the patient to become modified independent with transfers, mobility and ADLs and improvement as far as cognition, communication and swallowing, so that she can return back to her prior living situation. Goal is for her to be up utilizing the walker short distances as she was before with the wheelchair longer distances. 5. Discharge destination would be back to her assisted living facility at [facility]. 6. Expected therapy by discipline includes PT, OT and speech 1 hour per day [address] [address] REHAB UNIT PLAN OF CARE Name: LIVE MAN Room #: 505-P [facility] IN [facility]#: [id number] Admission: 04/21/17 Attend Phys: Krishna Robertson MD Discharge: Date of : 31 Report #: [id number] each five days a week throughout the duration of the acute inpatient rehabilitation stay. <ELECTRONICALLY SIGNED> By: Krishna Robertson MD 04/30/17 1515 0753 1218 Krishna Robertson MD /ghazal
[2017-04-21 19:45] VITALS: BP 104/73
[2017-04-22 05:26] VITALS: BP 92/48
[2017-04-22 05:50] LABS: ABSOLUTE NEUTROPHILS 3.9 thou/uL (1.4-8.2); BASOPHILS 0.4 % (0.0-2.0); EOSINOPHILS 2.3 % (0.0-3.0); HEMATOCRIT 22.5 % (37.0-47.0); HEMOGLOBIN 7.5 gm/dL (12.0-15.0); LYMPHOCYTES 11.3 % (24.0-44.0); MCH 34.3 pg (26.0-34.0); MCHC 33.4 g/dL (28.0-37.0); MCV 102.6 fL (80.0-100.0); PLATELET COUNT 99 thou/uL (150-400); RBC 2.19 mil/uL (4.20-5.00); WBC 5.2 thou/uL (4.0-11.0)
[2017-04-22 05:54] LABS: MANUAL DIFF NO
[2017-04-22 06:05] LABS: CALCIUM 8.2 mg/dL (8.5-10.1); CREATININE 1.8 mg/dL (0.6-1.0)
[2017-04-22 09:15] VITALS: BP 105/50
[2017-04-22 15:17] VITALS: BP 118/54; BP 127/68
[2017-04-22 18:29] VITALS: BP 104/54; BP 117/55; BP 118/54
[2017-04-22 20:20] VITALS: BP 109/56
[2017-04-22 22:13] VITALS: BP 117/55
[2017-04-23 05:45] VITALS: BP 109/52
[2017-04-23 08:17] LABS: ABSOLUTE NEUTROPHILS 3.1 thou/uL (1.4-8.2); BASOPHILS 0.8 % (0.0-2.0); EOSINOPHILS 4.5 % (0.0-3.0); HEMATOCRIT 31.9 % (37.0-47.0); LYMPHOCYTES 16.3 % (24.0-44.0); MCH 33.7 pg (26.0-34.0); MCHC 33.6 g/dL (28.0-37.0); MCV 100.3 fL (80.0-100.0); MONOCYTES 9.3 % (1.0-8.0); PLATELET COUNT 97 thou/uL (150-400); POLYS 69.1 % (36.0-66.0); RBC 3.19 mil/uL (4.20-5.00); RDW 15.7 % (10.5-14.5); WBC 4.5 thou/uL (4.0-11.0)
[2017-04-23 08:20] LABS: HEMOGLOBIN 10.7 gm/dL (12.0-15.0)
[2017-04-23 08:21] LABS: MANUAL DIFF NO
[2017-04-23 15:40] VITALS: BP 131/62
[2017-04-24 05:13] LABS: BASOPHILS 0.9 % (0.0-2.0); EOSINOPHILS 5.3 % (0.0-3.0); HEMATOCRIT 31.6 % (37.0-47.0); HEMOGLOBIN 10.5 gm/dL (12.0-15.0); LYMPHOCYTES 13.8 % (24.0-44.0); MCH 33.5 pg (26.0-34.0); MCHC 33.3 g/dL (28.0-37.0); MCV 100.5 fL (80.0-100.0); MONOCYTES 9.6 % (1.0-8.0); PLATELET COUNT 108 thou/uL (150-400); POLYS 70.4 % (36.0-66.0); RBC 3.15 mil/uL (4.20-5.00); WBC 4.3 thou/uL (4.0-11.0)
[2017-04-24 05:16] LABS: MANUAL DIFF NO
[2017-04-24 05:26] LABS: CALCIUM 8.3 mg/dL (8.5-10.1); CREATININE 1.9 mg/dL (0.6-1.0); MAGNESIUM 1.7 mg/dL (1.8-2.4)
[2017-04-24 05:29] VITALS: BP 118/64
[2017-04-24 16:15] VITALS: BP 128/65
[2017-04-25 05:24] VITALS: BP 121/63
[2017-04-25 16:09] VITALS: BP 124/69
[2017-04-26 03:10] VITALS: BP 120/63
[2017-04-26 03:19] LABS: ABSOLUTE NEUTROPHILS 2.9 thou/uL (1.4-8.2); BASOPHILS 1.2 % (0.0-2.0); EOSINOPHILS 5.2 % (0.0-3.0); HEMATOCRIT 32.1 % (37.0-47.0); HEMOGLOBIN 10.8 gm/dL (12.0-15.0); LYMPHOCYTES 17.7 % (24.0-44.0); MCH 33.4 pg (26.0-34.0); MCHC 33.5 g/dL (28.0-37.0); MCV 99.7 fL (80.0-100.0); MONOCYTES 8.8 % (1.0-8.0); PLATELET COUNT 110 thou/uL (150-400); POLYS 67.1 % (36.0-66.0); RBC 3.22 mil/uL (4.20-5.00); RDW 14.9 % (10.5-14.5); WBC 4.4 thou/uL (4.0-11.0)
[2017-04-26 03:21] LABS: MANUAL DIFF NO
[2017-04-26 03:31] LABS: ALBUMIN 2.7 g/dL (3.4-5.0); CREATININE 1.5 mg/dL (0.6-1.0); MAGNESIUM 1.5 mg/dL (1.8-2.4); POTASSIUM 3.7 mmol/L (3.5-5.1); TOTAL BILIRUBIN 0.7 mg/dL (<0.1-1.0); TOTAL PROTEIN 5.8 g/dL (6.4-8.2); URIC ACID* 12.9 mg/dL (2.6-7.2)
[2017-04-26 18:25] VITALS: BP 119/62
[2017-04-26 20:00] VITALS: BP 127/72
[2017-04-27 04:51] VITALS: BP 110/51
[2017-04-27 16:00] VITALS: BP 124/60
[2017-04-28 05:38] VITALS: BP 113/61
[2017-04-28 06:08] LABS: HEMATOCRIT 35.5 % (37.0-47.0); HEMOGLOBIN 11.7 gm/dL (12.0-15.0); MCH 33.3 pg (26.0-34.0); MCHC 32.8 g/dL (28.0-37.0); MCV 101.4 fL (80.0-100.0); RBC 3.5 mil/uL (4.20-5.00); RDW 14.9 % (10.5-14.5); WBC 5.5 thou/uL (4.0-11.0)
[2017-04-28 06:29] LABS: ALBUMIN 2.9 g/dL (3.4-5.0); CALCIUM 8.2 mg/dL (8.5-10.1); CREATININE 1.8 mg/dL (0.6-1.0); MAGNESIUM 1.6 mg/dL (1.8-2.4); POTASSIUM 4.3 mmol/L (3.5-5.1); TOTAL BILIRUBIN 0.8 mg/dL (<0.1-1.0); TOTAL PROTEIN 5.9 g/dL (6.4-8.2)
[2017-04-28 16:40] VITALS: BP 129/70
[2017-04-29 02:55] VITALS: BP 113/51
[2017-04-29 05:42] LABS: CALCIUM 8.1 mg/dL (8.5-10.1); CREATININE 1.7 mg/dL (0.6-1.0); MAGNESIUM 1.5 mg/dL (1.8-2.4)
[2017-04-29 16:00] VITALS: BP 129/50
[2017-04-29 21:30] VITALS: BP 118/58
[2017-04-30 05:25] VITALS: BP 130/70
[2017-04-30 16:00] VITALS: BP 130/65
[2017-05-01 05:55] VITALS: BP 114/52
[2017-05-01 06:53] LABS: HEMOGLOBIN 10.7 gm/dL (12.0-15.0); MCH 33.6 pg (26.0-34.0); MCHC 33.5 g/dL (28.0-37.0); MCV 100.2 fL (80.0-100.0); RBC 3.2 mil/uL (4.20-5.00); RDW 15.1 % (10.5-14.5); WBC 5.9 thou/uL (4.0-11.0)
[2017-05-01 07:24] LABS: ALBUMIN 2.9 g/dL (3.4-5.0); CALCIUM 8.2 mg/dL (8.5-10.1); CREATININE 1.5 mg/dL (0.6-1.0); POTASSIUM 3.7 mmol/L (3.5-5.1); TOTAL BILIRUBIN 0.9 mg/dL (<0.1-1.0); TOTAL PROTEIN 5.8 g/dL (6.4-8.2)
[2017-05-01 15:32] VITALS: BP 115/69
[2017-05-02 05:23] VITALS: BP 117/74
[2017-05-02] MEDS ORDERED: CARVEDILOL6.25 MG PO (14:13)
[2017-05-02] MEDS ORDERED: ULTRAM 50MG TAB50 MG PO (14:14)
[2017-05-02 16:00] VITALS: BP 121/58
[2017-05-03 02:01] VITALS: BP 111/66
[2017-05-03 03:28] LABS: HEMATOCRIT 32.1 % (37.0-47.0); HEMOGLOBIN 10.6 gm/dL (12.0-15.0); MCH 32.9 pg (26.0-34.0); MCHC 33.1 g/dL (28.0-37.0); MCV 99.4 fL (80.0-100.0); RBC 3.23 mil/uL (4.20-5.00)
[2017-05-03 03:33] LABS: CALCIUM 7.8 mg/dL (8.5-10.1); CREATININE 1.5 mg/dL (0.6-1.0); MAGNESIUM 1.4 mg/dL (1.8-2.4); POTASSIUM 3.3 mmol/L (3.5-5.1)
[2017-05-03 08:30] VITALS: BP 124/75
[2017-05-03] MEDS ORDERED: TRAMADOL 50 MG50 MG PO (11:10)
[2017-05-03] MEDS ORDERED: ALPRAZOLAM 0.0.25 M1 PO (11:10)
== END 2017-05-03 13:24 | DRG 947 ==
PROVIDERS: Internal Medicine Hematology & Oncology; Internal Medicine Pulmonary Disease; Nurse Practitioner; Physical Medicine & Rehabilitation
PROC: 30233N1 Transfusion of Nonautologous Red Blood Cells into Peripheral Vein, Percutaneous Approach (ICD-10-PCS; principal; 2017-04-22)
DX: R53.81 Other malaise (principal); I50.43 Acute on chronic combined systolic (congestive) and diastolic (congestive) heart failure; J96.01 Acute respiratory failure with hypoxia; J44.1 Chronic obstructive pulmonary disease with (acute) exacerbation; I13.0 Hypertensive heart and chronic kidney disease with heart failure and stage 1 through stage 4 chronic kidney disease, or unspecified chronic kidney disease; D64.9 Anemia, unspecified; D69.6 Thrombocytopenia, unspecified; E78.00 Pure hypercholesterolemia, unspecified; E11.22 Type 2 diabetes mellitus with diabetic chronic kidney disease; N18.9 Chronic kidney disease, unspecified; I25.10 Atherosclerotic heart disease of native coronary artery without angina pectoris; Z96.641 Presence of right artificial hip joint; Z96.651 Presence of right artificial knee joint; I25.5 Ischemic cardiomyopathy; Z96.642 Presence of left artificial hip joint; E87.5 Hyperkalemia; E11.42 Type 2 diabetes mellitus with diabetic polyneuropathy; I27.2 Other secondary pulmonary hypertension; Z90.49 Acquired absence of other specified parts of digestive tract; Z99.81 Dependence on supplemental oxygen; Z79.82 Long term (current) use of aspirin; Z79.899 Other long term (current) drug therapy; Z95.1 Presence of aortocoronary bypass graft
CPT/HCPCS: 10112

== ENCOUNTER 2017-07-26 03:51 | Inpatient (IN) | payer OTHER, MEDICARE ==
[2017-07-26] VITALS (7 sets, daily range): BP systolic 107–131; BP diastolic 56–80
[~2017-07-26] VITALS: Ht 144.8 cm; Wt 49.9 kg
--- NOTE | ~2017-07-26 | HC ---
[facility] [place] [address] CONSULTATION Name: LIVE MAN Room #: 459-P [facility] IN M.R.#: [id number] Admission: 07/26/17 Attend Phys: Marc Aceves MD Discharge: 08/01/17 Date of : 32 Report #: [id number] THIS REPORT FOR: //name// CC: Marc Aceves DATE OF SERVICE: 07/26/2017 HISTORY OF PRESENT ILLNESS: The patient is an 87-year-old white female previously known to me, who was admitted from the nursing facility after apparently rolling off the couch while sleeping. She sustained a significant fall with a right eye contusion. She had a laceration and underwent Dermabond. She underwent a CT scan which showed a right frontal periorbital hematoma, but no intracranial hematoma. She is uncertain regarding any loss of consciousness. She has been admitted and we are consulted regarding rehabilitation issues. PAST MEDICAL HISTORY: Includes a prior acute inpatient rehab stay from 04/21/2017 through 05/02/2017. The patient at that point was treated for congestive heart failure, had some left ankle pain from degenerative arthritis that improved. She has some dysphagia warranting nectar-thickened liquids. PAST MEDICAL HISTORY: Also includes congestive heart failure, anemia, cardiomyopathy, coronary artery disease with prior coronary artery bypass grafting, diabetes mellitus with a history of some neuropathy. She has had a prior left hip hemiarthroplasty, right hip replacement, right knee replacement. MEDICATIONS: Please see the full medication listing. SOCIAL HISTORY: She has been living at an assisted living facility at [facility]. I am uncertain if she is still at that facility. She premorbidly utilized a walker and was on oxygen premorbidly. REVIEW OF SYSTEMS: No current complaints of chest pain, shortness of breath, abdominal discomfort. She has pain from her right eye as expected. No bowel or bladder changes were noted. PHYSICAL EXAMINATION: GENERAL: She is a pleasant, thin 87-year-old white female in no obvious distress. VITAL SIGNS: Last recorded temperature is 98.5, pulse 92, respirations 20, blood pressure 125/74. NEUROLOGIC: She is alert. There is mild latency to her responses. She is conversant, follows basic commands without difficulty, although she needs some cues. Significant right eye periorbital hematoma. EOMs appeared to be full. Facies were otherwise symmetric. EXTREMITIES: She has functional range of motion of the upper extremities with strength grade 4-/5. DTRs are trace to 1. Lower extremities: No focal calf [address] [address] CONSULTATION Name: LIVE MAN Room #: 459-P [facility] IN [facility].#: [id number] Admission: 07/26/17 Attend Phys: Marc Aceves MD Discharge: 08/01/17 Date of : 31 Report #: [id number] swelling. Functional range of motion with strength grade 4-/5. DTRs are trace to 1. ASSESSMENT: An 87-year-old white female previously known to me with the following problem list: 1. Right eye contusion with a periorbital hematoma post fall. 2. Head abrasion. 3. History of chronic obstructive pulmonary disease, on 2 liters nasal cannula currently. 4. History of congestive heart failure. 5. Zuz-vcoxuhv-ibgkprbxf diabetes mellitus. 6. Neuropathy. 7. Hypertension. 8. Prior coronary artery bypass grafting. 9. Prior left hip hemiarthroplasty. PLAN: Therapy evaluations are underway. We will need to get further information regarding her current home situation. I know she [facility] the [facility] back in April and went to a half-way facility. At this point, I do not see that she has a new diagnosis for another acute [address] [place] [address] inpatient rehab stay, but we will be glad to follow along with you in the meantime. <ELECTRONICALLY SIGNED> By: Krishna Robertson MD 08/07/17 1232 [id number] [id number] Krishna Robertson MD /[facility]
--- NOTE | ~2017-07-26 | H ---
[place] [address] HISTORY AND PHYSICAL Name: LIVE MAN Room #: 459-P [facility] IN M.R.#: [id number] Admission: 07/26/17 Attend Phys: Marc Aceves MD Discharge: 08/01/17 Date of : 31 Report #: [id number] THIS REPORT FOR: //name// CC: Marc Aceves DATE OF SERVICE: 07/26/2017 IMPRESSION: 1. Possible aspiration pneumonia. 2. Encephalopathy. 3. Fall with contusion. 4. Cardiomyopathy. 5. Acute on chronic congestive heart failure. 6. Acute kidney injury on chronic. 7. Hypercapnia. PLAN: Admit, treat as an aspiration pneumonia and treat her encephalopathy also. We will have PT, OT and speech see. Because of anxiety and depression, we will also have psychiatry see. Depending on echo, may have Cardiology see. Very tenuous fluid status, we will need to monitor closely. We will treat with IV Lasix today, although creatinine is up. She has peripheral edema. HISTORY OF PRESENT ILLNESS: A very pleasant 87-year-old female who I believe remembers when she was in the ER, did not remember seeing me when I went back up to the floor to see her. History either she was in a chair and has been sleeping there on and off and just slid off, trying to stand up and slid off or she may have been in bed it is difficult to know. She does complain of shortness of breath, no definite chest pain. Her legs are doing better, but still edematous, although they are being wrapped. She does complain of cough. She has not looked at sputum. PAST MEDICAL HISTORY: MEDICATIONS: Have included albuterol, levalbuterol, aerosol p.r.n., O2 at 2 liters, ferrous sulfate 325 b.i.d., atorvastatin 10 mg at bedtime, Coreg 6.25 b.i.d., lisinopril 5 mg at bedtime, aspirin 81 mg daily, which will be held because of her eye, tramadol 50 q.6 p.r.n., Tylenol, Lexapro 10 mg, trazodone at bedtime, alprazolam p.r.n., torsemide 40 mg daily, Mucinex 600 mg twice a day, loperamide, Colace, Zofran, Pepcid, folic acid, B12, mag oxide. PAST SURGICAL HISTORY: Include CABG, ORIF left thumb, left hip, hemiarthroplasty, right hip replacement, right knee replacement, hysterectomy, ORIF right clavicle. ALLERGIES: No known. [address] [address] HISTORY AND PHYSICAL Name: LIVE MAN Room #: 459-P [facility] IN M.R.#: [id number] Admission: 07/26/17 Attend Phys: Marc Aceves MD Discharge: 08/01/17 Date of : 31 Report #: [id number] SOCIAL HISTORY: Negative tobacco or ETOH, lives at [facility] now. FAMILY HISTORY: Negative for pulmonary disease, noncontributory at present. REVIEW OF SYSTEMS: Positive cough, shortness breath, dyspnea on exertion, weakness, does not recall events, positive edema. No dysuria, no back pain. PHYSICAL EXAMINATION: EYES: Right eye bruising. Laceration of right eye with abrasion, swelling, ecchymosis, right supraorbital rim. NECK: Negative JVD. LUNGS: Decreased coarse at the bases. HEART: Regular. ABDOMEN: Bowel sounds present. EXTREMITIES: Showed positive edema and wrapped and appears to know who I am. LABORATORY DATA: Lactate 1.8, TSH 3.5, folate 38, B12 1647. Magnesium 2.4. BUN 31, creatinine 2, SGPT 10, albumin 3.1, pH 7.466, pCO2 of 47, pO2 of 88 on 2 liters. Chest x-ray showed right infiltrate and effusion. INR 1.2. White count 5.2, hemoglobin 11, platelets 168, no bands. CT orbits showed frontal and periorbital soft tissue hematoma or swelling, no fracture. CT head showed right frontal and periorbital hematoma. No acute change. <ELECTRONICALLY SIGNED> By: Marc Aceves MD 08/08/17 0003 1705 1808 Marc Aceves MD /nt
--- NOTE | ~2017-07-26 | 2DMMODE ---
[place] [address] [facility] [place] [address] 2 D/M-MODE ECHOCARDIOGRAM Name: LIVE MAN Room #: 459-P [facility] IN M.R.#: [id number] Admission: 07/26/17 Attend Phys: Bryant Rodriguez Discharge: Date of : 32 Date of Service: 07/27/17 1546 Report #: [id number] THIS REPORT FOR: //name// APPROVED REPORT Study performed: 07/27/2017 11:32:41 EXAM: Comprehensive 2D, Doppler, and color-flow Echocardiogram Patient Location: Bedside Room #: 459 Status: on-call BSA: 1.40 HR: 86 bpm BP: 117/69 mmHg Rhythm: NSR Other Information Study Quality: Good Risk Factors: Cardiac Risk Factors: DM, HTN Indications Congestive Heart Failure Dyspnea CAD Cardiomyopathy 2D Dimensions IVSd: 12.23 (7-11mm) LVOT Diam: 18.79 (18-24mm) LVDd: 50.72 mm PWd: 12.23 (7-11mm) Ascending Ao: 26.66 (22-36mm) LVDs: 46.52 (25-40mm) Aortic Root: 26.54 mm Volumes Left Atrial Volume (Systole) Single Plane 4CH: 66.12 mL Single Plane 2CH: 49.93 mL Biplane LA Volume: 61.00 mL LA ESV Index: 43.00 mL/m2 Aortic Valve AoV Peak Carlos.: 1.36 m/s AO Peak Gr.: 8.75 mmHg LVOT Max P.87 mmHg LVOT Mean P.49 mmHg LVOT Max V: 0.47 m/s [facility] [address] [place] [address] 2 D/M-MODE ECHOCARDIOGRAM Name: LIVE MAN Room #: 459-P [facility] IN ..#: [id number] Admission: 07/26/17 Attend Phys: Bryant Rodriguez Discharge: Date of : 32 Date of Service: 07/27/17 1546 Report #: [id number] LVOT Mean V: 0.33 m/s LVOT V1 VTI: 7.76 cm CYNDI Vmax: 0.94 cm2 SV (LVOT): 21.51 mL Mitral Valve E/A Ratio: 1.3 MV Decel. Time: 147.78 ms MV E Max Carlos.: 1.06 m/s MV A Carlos.: 0.80 m/s MV PHT: 42.86 ms IVRT: 73.82 ms Pulmonary Valve PV Peak Carlos.: 0.60 m/s PV Peak Gr.: 1.45 mmHg OK End Vmax: 1.90 m/s Tricuspid Valve TR Peak Carlos.: 3.90 m/s RAP Estimate: 7.00 mmHg TR Peak Gr.: 60.78 mmHg PA Pressure: 68.00 mmHg Left Ventricle The left ventricle is normal size. There is global hypokinesis of the left ventricle. There is normal left ventricular wall thickness. Left ventricular systolic function is severely decreased. LVEF is 25%. Grade II - pseudonormal filling dynamics. Right Ventricle The right ventricle is normal size. The right ventricular systolic function is normal. Atria Left atrium is moderately dilated. Right atrium is dilated. Aortic Valve Aortic valve is calcified. Mild aortic regurgitation. Moderate aortic stenosis. Mitral Valve There is mitral annular calcification. Moderate to severe mitral regurgitation. No evidence of mitral valve stenosis. Tricuspid Valve The tricuspid valve is normal in structure. Severe tricuspid regurgitation. [facility] [address] [address] 2 D/M-MODE ECHOCARDIOGRAM Name: LIVE MAN Room #: 459-P [facility] IN ..#: [id number] Admission: 07/26/17 Attend Phys: Bryant Rodriguez Discharge: Date of : 32 Date of Service: 07/27/17 1546 Report #: [id number] Pulmonic Valve The pulmonary valve is normal in structure. Mild to moderate pulmonic regurgitation. Great Vessels The aortic root is normal in size. IVC is normal in size and collapses >50% with inspiration. Pericardium There is no pericardial effusion. <Conclusion> Left ventricular systolic function is severely decreased. There is global hypokinesis of the left ventricle. LVEF is 25%. Grade II - pseudonormal filling dynamics. Both atria are moderately dilated. Aortic valve is calcified. Moderate aortic stenosis. Mild insufficiency There is mitral annular calcification. Moderate to severe mitral regurgitation. Pulmonary artery pressure of 70mmHg There is no pericardial effusion. <ELECTRONICALLY SIGNED> By: Barry Roa MD, [facility] 07/27/17 1546 1546 1546 Barry Roa MD, FACC /INF
[~2017-07-26 03:51] MED LIST changes: +ALPRAZOLAM 0.0.25 M1 PO; +CARVEDILOL6.25 MG PO
[2017-07-26] MEDS ORDERED: DEEP SEA NASAL44 M1 NASAL ×2 (04:04→04:07)
[2017-07-26] MEDS ORDERED: PEPCID20 MG PO (04:05)
[2017-07-26] MEDS ORDERED: ASPIRIN81 M2 PO (04:06)
[2017-07-26] MEDS ORDERED: IRON325 PO (04:09)
[2017-07-26] MEDS ORDERED: MAGOXIDE PO (04:10)
[2017-07-26] MEDS ORDERED: ZESTRIL5 MG PO (04:11)
[2017-07-26] MEDS ORDERED: ESCITALOPRAM OX10 MG PO (04:12)
[2017-07-26] MEDS ORDERED: VENTOLIN HFA 1818 GM PO (04:13)
[2017-07-26] MEDS ORDERED: TRAMADOL HCL50 MG PO (04:14)
[2017-07-26] MEDS ORDERED: TRAZODONE 150150 M1 PO (04:16)
[2017-07-26] MEDS ORDERED: [UNRECOGNIZED DRUG - OTHER] PO (04:16)
[2017-07-26] MEDS ORDERED: DEMADEX20 MG PO (04:20)
[2017-07-26 08:42] LABS: ABSOLUTE NEUTROPHILS 3.8 thou/uL (1.4-8.2); BASOPHILS 0.9 % (0.0-2.0); EOSINOPHILS 1.6 % (0.0-3.0); HEMATOCRIT 33.3 % (37.0-47.0); LYMPHOCYTES 15.6 % (24.0-44.0); MCH 32.7 pg (26.0-34.0); MCHC 33.1 g/dL (28.0-37.0); MCV 98.7 fL (80.0-100.0); MONOCYTES 8.4 % (1.0-8.0); PLATELET COUNT 168 thou/uL (150-400); POLYS 73.5 % (36.0-66.0); RBC 3.38 mil/uL (4.20-5.00); RDW 15.1 % (10.5-14.5); WBC 5.2 thou/uL (4.0-11.0)
[2017-07-26 08:51] LABS: MANUAL DIFF NO
[2017-07-26 09:02] LABS: APTT 26.8 Seconds (24.5-32.8); INR 1.2; PROTIME 11.9 Seconds (9.3-11.4)
[2017-07-26 09:14] LABS: TSH 3.53 uIU/mL (0.358-3.740)
[2017-07-26 09:27] LABS: ALBUMIN 3.1 g/dL (3.4-5.0); CALCIUM 8.9 mg/dL (8.5-10.1); POTASSIUM 4.4 mmol/L (3.5-5.1); TOTAL PROTEIN 6.5 g/dL (6.4-8.2); TROPONIN-I 0.05 ng/mL (<0.04-0.07)
[2017-07-26 09:47] LABS: ABG SAMPLE TYPE ARTERIAL; BE(vivo) 8.3 mmol/L (-2 to +3); HCO3 33.1 mmol/L (22.0-26.0); LACTATE 2.09 mmol/L (0.5-2.0); O2(CT) 15.3 mL/dL (15.0-23.0); O2Hb 95.6 % (92.0-98.0); PO2 87.7 mmHg (80.0-100.0); pH 7.466 (7.360-7.450); tCO2 34.6 mmol/L (24.0-30.0)
[2017-07-26 09:48] LABS: STICK SITE R.BRACHIAL
[2017-07-26 11:08] LABS: FOLIC ACID 38.2 ng/mL (8.6-58.9)
[2017-07-26 17:19] LABS: URINE BILIRUBIN NEGATIVE (Negative); URINE BLOOD TRACE (Negative); URINE COLOR YELLOW; URINE GLUCOSE-RANDOM* NEGATIVE (Negative); URINE KETONES NEGATIVE (Negative); URINE LEUKOCYTES-REFLEX 3+ (Negative); URINE PROTEIN (DIPSTICK) NEGATIVE (Negative); URINE UROBILINOGEN 0.2 E.U./dl (0.2-1.0)
[2017-07-26 17:31] LABS: CRYSTALS None Seen /LPF (None Seen); SQUAMOUS >10 Many /LPF (0-3)
[2017-07-26 17:32] LABS: CASTS None Seen /LPF (None Seen); URINE RBC None Seen /HPF (0-2); URINE WBC-REFLEX >25 Many /HPF (0-5)
[2017-07-27 03:27] VITALS: BP 122/75
[2017-07-27 03:48] LABS: HEMATOCRIT 26.8 % (37.0-47.0); MCH 32.2 pg (26.0-34.0); MCHC 32.4 g/dL (28.0-37.0); MCV 99.4 fL (80.0-100.0); RBC 2.69 mil/uL (4.20-5.00); RDW 15.2 % (10.5-14.5); WBC 3.4 thou/uL (4.0-11.0)
[2017-07-27 03:55] LABS: CALCIUM 8.2 mg/dL (8.5-10.1); CREATININE 1.8 mg/dL (0.6-1.0); MAGNESIUM 2.2 mg/dL (1.8-2.4); POTASSIUM 3.9 mmol/L (3.5-5.1)
[2017-07-27 04:00] LABS: HEMOGLOBIN 8.7 gm/dL (12.0-15.0)
[2017-07-27 07:44] VITALS: BP 117/69
[2017-07-27 12:48] VITALS: BP 117/71
[2017-07-27 15:29] VITALS: BP 113/71
[2017-07-27 19:24] VITALS: BP 127/67
[2017-07-28 04:20] VITALS: BP 134/84
[2017-07-28 06:36] LABS: CREATININE 1.8 mg/dL (0.6-1.0); POTASSIUM 3.7 mmol/L (3.5-5.1)
[2017-07-28 07:39] VITALS: BP 127/74
[2017-07-28 11:26] VITALS: BP 117/67
[2017-07-28 16:18] VITALS: BP 117/70
[2017-07-28 19:58] VITALS: BP 108/66
[2017-07-29 05:14] VITALS: BP 109/60
[2017-07-29 08:07] VITALS: BP 124/70
[2017-07-29 12:00] VITALS: BP 97/58
[2017-07-29 12:31] LABS: CALCIUM 8.3 mg/dL (8.5-10.1); CREATININE 1.6 mg/dL (0.6-1.0)
[2017-07-29 16:00] VITALS: BP 110/68
[2017-07-29 19:29] VITALS: BP 105/59
[2017-07-30 04:06] VITALS: BP 113/72
[2017-07-30 06:50] LABS: HEMATOCRIT 30.2 % (37.0-47.0); HEMOGLOBIN 9.9 gm/dL (12.0-15.0); MCH 32.6 pg (26.0-34.0); MCHC 32.9 g/dL (28.0-37.0); MCV 99.2 fL (80.0-100.0); RBC 3.05 mil/uL (4.20-5.00); RDW 15.2 % (10.5-14.5); WBC 4.5 thou/uL (4.0-11.0)
[2017-07-30 07:00] LABS: CALCIUM 8.2 mg/dL (8.5-10.1); CREATININE 1.6 mg/dL (0.6-1.0); POTASSIUM 4.1 mmol/L (3.5-5.1)
[2017-07-30 08:00] VITALS: BP 117/68
[2017-07-30 12:00] VITALS: BP 104/60
[2017-07-30] MEDS ORDERED: TRAZODONE HCL50 MG PO (14:03)
[2017-07-30] MEDS ORDERED: TRAZODONE HCL100 MG PO (14:03)
[2017-07-30] MEDS ORDERED: LISINOPRIL2.5 MG PO (14:03)
[2017-07-30] MEDS ORDERED: AUGMENTIN 500-1 EACH PO (14:03)
[2017-07-30 16:00] VITALS: BP 123/71
[2017-07-30 20:44] VITALS: BP 117/20
[2017-07-31 06:25] VITALS: BP 113/70
[2017-07-31 07:38] LABS: HEMATOCRIT 33.9 % (37.0-47.0); HEMOGLOBIN 10.9 gm/dL (12.0-15.0); MCH 32.2 pg (26.0-34.0); MCV 100.3 fL (80.0-100.0); RBC 3.38 mil/uL (4.20-5.00); RDW 15.4 % (10.5-14.5); WBC 6.2 thou/uL (4.0-11.0)
[2017-07-31 07:57] LABS: CALCIUM 8.4 mg/dL (8.5-10.1); CREATININE 1.9 mg/dL (0.6-1.0); POTASSIUM 4.5 mmol/L (3.5-5.1)
[2017-07-31 08:31] VITALS: BP 118/74
[2017-07-31 12:00] VITALS: BP 127/78
[2017-07-31 15:56] VITALS: BP 106/61
[2017-07-31 20:35] VITALS: BP 104/59
[2017-08-01 03:53] VITALS: BP 118/70
[2017-08-01 07:33] VITALS: BP 129/79
[2017-08-01] MEDS ORDERED: POTASSIUM20 PO (07:50)
[2017-08-01] MEDS ORDERED: SEROQUEL 25 MG25 M1 PO (07:50)
[2017-08-01] MEDS ORDERED: OXYGEN NASAL (10:52)
[2017-08-01 12:16] VITALS: BP 118/70
== END 2017-08-01 13:58 | disposition home or self-care (01) | DRG 987 ==
LOC: ER 03:51 → EROBS 07:33 → 4W 07:33
PROVIDERS: Internal Medicine Pulmonary Disease
PROC: 0WQ0XZZ Repair Head, External Approach (ICD-10-PCS; principal; 2017-07-26)
DX: J69.0 Pneumonitis due to inhalation of food and vomit (principal); I50.23 Acute on chronic systolic (congestive) heart failure; G93.40 Encephalopathy, unspecified; N17.9 Acute kidney failure, unspecified; I42.9 Cardiomyopathy, unspecified; D61.818 Other pancytopenia; I13.0 Hypertensive heart and chronic kidney disease with heart failure and stage 1 through stage 4 chronic kidney disease, or unspecified chronic kidney disease; N39.0 Urinary tract infection, site not specified; S00.91XA Abrasion of unspecified part of head, initial encounter; Z96.641 Presence of right artificial hip joint; Z96.651 Presence of right artificial knee joint; M19.90 Unspecified osteoarthritis, unspecified site; I25.10 Atherosclerotic heart disease of native coronary artery without angina pectoris; E11.22 Type 2 diabetes mellitus with diabetic chronic kidney disease; E11.40 Type 2 diabetes mellitus with diabetic neuropathy, unspecified; S00.11XA Contusion of right eyelid and periocular area, initial encounter; N18.9 Chronic kidney disease, unspecified; F41.9 Anxiety disorder, unspecified; B96.20 Unspecified Escherichia coli [E. coli] as the cause of diseases classified elsewhere; R41.0 Disorientation, unspecified; Z95.1 Presence of aortocoronary bypass graft; Z90.49 Acquired absence of other specified parts of digestive tract; Z79.82 Long term (current) use of aspirin; Z79.899 Other long term (current) drug therapy
CPT/HCPCS: 10045